=== PATIENT | male | born 1985 | race Two or more races ===

== ENCOUNTER 2017-06-20 23:48 | Emergency (ER) | payer SELFPAY ==
[~2017-06-20] VITALS: Ht 177.8 cm; Wt 95.3 kg
--- NOTE | 2017-06-21 00:09 | Emergency Room Report ---
History of Present Illness General Chief Complaint: Medical Clearance Source: Patient - and law enforcement Present Illness HPI Patient allegedly taken to ground by security guards. Hit head and had R arm either twisted or contused. Patient refuses to give more history. Alleged alcohol ingestion. Complaining of pain in R shoulder and at handcuffs. Also has injuries to forehead. Allergies: Coded Allergies: No Known Allergies (Unverified , 06/20/17) Patient History Limited by: other - refuses to answer Past Medical History: see triage record Social History: Reports: alcohol use Social History Narrative in custody Reviewed Nursing Documentation: PMH: Agreed, PSxH: Agreed Nursing Documentation-PMH Past Medical History: No Stated History Review of Systems All Other Systems: limited Physical Exam Pulse 102 Sp02 EP Interpretation: reviewed, normal General Appearance: well appearing, no apparent distress, GCS 15 - though refused to answer why here Head: normocephalic, other - hematoma R forehead and abrasions L temporal area Eyes: bilateral eye PERRL, bilateral eye other ENT: moist mucus membranes Neck: full range of motion, supple, no bony tend Respiratory: chest non-tender, lungs clear, normal breath sounds Cardiovascular #1: regular rate, rhythm Cardiovascular #2: 2+ radial (R) Gastrointestinal: normal inspection, non-distended Musculoskeletal: back normal, gait/station normal, normal range of motion, tender - R shoulder, no dimpling or deformity Neurologic: alert, motor strength/tone normal, sensory intact, other - no ataxia, oriented - X2 - refusing to answer about date of why here Psychiatric: other - verbally abusive, refusing evaluation, poor insight and judgement Skin: warm/dry, abrasions - head, hematoma - L forehead Medical Decision Making Diagnostic Impression: Primary Impression: Head contusion Qualified Codes: S00.03XA - Contusion of scalp, initial encounter Additional Impressions: Alcohol intoxication Qualified Codes: F10.929 - Alcohol use, unspecified with intoxication, unspecified Right shoulder pain Qualified Codes: M25.511 - Pain in right shoulder Abrasion ER Course Patient in custody after taken to ground. Will not answer and refuses VS and evaluation. DDx: head injury, acute intoxication, antisocial behavior, shoulder strain/contusion. Consider xray of shoulder and analgesia if agrees. Offered water when requested, then refused. Offered evaluation, but told needed to cooperate with VS. He refuses to cooperate and is verbally abuse. Non-focal neurologic exam. No medical emergency at this time. Patient cleared to be booked. Offered that if he changed his mind to request further evaluation. Patient refuses VS Status: unchanged Disposition: D/C TO LAW ENFORCEMENT IN CUST Condition: Stable Scripts Bacitracin (Bacitracin) 28.4 Gm Oint...g. 1 APPLIC TOPIC BID, #10 GM Prov: Douglas Diaz M.D. 06/21/17 Acetaminophen (Tylenol) 325 Mg Tablet 650 MG ORAL Q6H Y for Prn Pain/Headache/Temp > 101, #10 TAB 0 Refills Prov: Douglas Diaz M.D. 06/21/17 Douglas Diaz M.D. Jun 21, 2017 00:09
[2017-06-21] MEDS ORDERED: TYLENOL325 MG ORAL (00:11)
[2017-06-21] MEDS ORDERED: BACITRACIN15 GM TOPIC (00:11)
[2017-06-21 00:38] VITALS: BP 0/0
== END 2017-06-21 00:40 ==
LOC: EMR 23:52
DX: S00.83XA Contusion of other part of head, initial encounter (principal); S00.81XA Abrasion of other part of head, initial encounter; Y04.2XXA Assault by strike against or bumped into by another person, initial encounter; Y92.89 Other specified places as the place of occurrence of the external cause; F10.129 Alcohol abuse with intoxication, unspecified; M25.511 Pain in right shoulder
CPT/HCPCS: 99283